=== PATIENT | male | born 1980 | race Caucasian/White ===

== ENCOUNTER 2019-03-04 12:43 | Observation (INO) ==
[2019-03-04] MEDS ORDERED: Isovue-370 500 ML BOTTLE IVP ONE ×2 (12:56→12:57)
[2019-03-04 13:09] LABS: Hematocrit 49.8 % (37.5-50.1); Mean Corpuscular HGB Conc 33.5 g/dL (31.6-35.5); Mean Corpuscular Hemoglobin 29.7 pg (28.0-33.3); Mean Corpuscular Volume 88.5 fL (83.0-100.0); Mean Platelet Volume 9.3 fL (9.4-12.4); Platelet Count 319 K/mcL (140-400); Red Blood Count 5.63 M/mcL (4.19-5.50); Red Cell Distribution Width 14.2 % (11.5-14.5); White Blood Count 8.6 K/mcL (4.3-11.1)
[2019-03-04 13:13] LABS: Hemoglobin 16.7 g/dL (12.9-16.9)
--- NOTE | 2019-03-04 13:20 | Emergency Department Note ---
Disposition Clinical Impression: Left-sided weakness Altered mental state Qualifiers: Altered mental status type: delirium Qualified Code(s): R41.0 - Disorientation, unspecified Fever Qualifiers: Fever type: unspecified Qualified Code(s): R50.9 - Fever, unspecified Disposition: Admitted As Inpatient Condition: Undetermined Referrals: NONE,PCP [Primary Care Provider] - Forms: ED Satisfaction Letter Time of Disposition: 15:51 Neuro HPI - General Chief Complaint: ED Neuro Symptoms/Deficit Stated Complaint: stroke alert Time Seen by Provider: 03/04/19 12:46 Source: patient, EMS Mode of arrival: EMS Limitations: altered mental status Nursing Notes Reviewed: Yes Vital Signs Reviewed: Yes - History of Present Illness HPI Narrative: 38-year-old male from retirement arrives to the emergency department last known well at 6 AM with concern for left-sided weakness, paresthesias and alteration in mentation. Patient arrived in the emergency department had a stroke alert immediately called. No previous history. History has drug abuse. Patient is unable to communicate properly. Head CT demonstrates no acute findings. - Related Data Home Medications: Home Medications Medication Instructions Recorded Confirmed Omeprazole [PriLOSEC] 40 mg PO BID 02/25/19 02/27/19 Venlafaxine HCl [Venlafaxine HCl 75 mg PO DAILY 02/25/19 02/27/19 ER] Gabapentin [Neurontin] 600 mg PO TID 03/04/19 03/04/19 Previous Rx's Medication Instructions Recorded Doxycycline Hyclate 100 mg PO BID #20 tablet 02/27/19 Ibuprofen 800 mg PO TID PRN #15 tablet 02/27/19 Lactobacillus Acidophilus 1 each PO BID #30 capsule 02/27/19 [Acidophilus] Sulfamethoxazole/Trimeth DS 1 each PO BID #20 tablet 02/27/19 [Bactrim Ds] Allergies/Adverse Reactions: Allergies Allergy/AdvReac Type Severity Reaction Status Date / Time Penicillins Allergy Swelling Verified 02/25/19 00:06 of Lip/Tongue/Throat Limitations: ROS unobtainable due to patients medical condition Past Medical History - Past Medical History Source: old records reviewed Medical history: Reports: CVA, hypertension, seizures Surgical history: Reports: non-contributory Psychiatric history: Reports: no psych history - Social History Smoking Status: Current every day smoker Smokeless Tobacco Status: No Alcohol use: Reports: none Drug use: Reports: none Physical Exam - General Limitations: other (inability converse) General appearance: alert, in no apparent distress - Head Head exam: atraumatic, normocephalic, normal inspection - Eye Eye exam: Present: normal appearance, PERRL, EOMI - ENT ENT exam: normal exam, normal oropharynx, mucous membranes moist - Neck Neck exam: Present: normal inspection, full ROM, trachea midline - Chest Chest inspection: Present: normal inspection - Respiratory Respiratory exam: Present: normal lung sounds bilaterally - Cardiovascular Cardiovascular exam: Present: normal rhythm, tachycardia - Abdominal Exam Abdominal exam: Present: soft, Non-Tender. Absent: tenderness, distention, guarding, rebound, rigidity - Extremities Exam Extremities exam: Present: normal inspection, normal capillary refill. Absent: tenderness, pedal edema - Expanded Neurological Exam Sensory exam upper extremity: light touch: Abnormal Left Sensory exam lower extremity: light touch: Abnormal Left Coma Scale Eye Opening: Spontaneous Coma Scale Motor Response: Obeys Commands Coma Scale Verbal Response: None Coma Scale Total: 11 - Skin Skin exam: Present: warm, dry, intact, normal color Course - Reevaluation(s) Reevaluation #1: Patient's stroke workup here in the ED demonstrates no acute findings and no signs of 4 vessel occlusion. The patient is febrile so we are concerned about meningitis at this time given his symptoms. We will perform a lumbar puncture. No further questions or concerns noted. Time: 14:12 - Consultations Consultation #1: I spoke with at [facility] neurology stroke team. He agreed that the patient is out of the TPA window secondary to being roughly 6 hours of last known well. He recommended CTA of the head and neck with concern for LVO. He stated that if the patient has a LVO that they would call him back. Otherwise they can perform routine follow-up here at [facility]. Time: 15:34 Consultation #2: Patient's head CT demonstrates no signs of large vessel occlusion. Patient was tachycardic and febrile. I am concerned about infectious etiology given his alteration in mentation and symptoms. In addition toxidrome may not be discounted. I spoke with Dr. Garner in neurology who will see the patient in consultation. No further recommendations noted at this time. Vital Signs Pulse Rate 123 03/04/19 12:45 Respiratory Rate 18 06/09/19 12:45 Blood Pressure 133/104 06/09/19 12:45 Temperature 100.6 F H 03/04/19 14:14 Pulse Rate 137 03/04/19 12:53 Respiratory Rate 18 03/04/19 12:53 Blood Pressure 124/104 03/04/19 12:53 O2 Sat by Pulse Oximetry 97 03/04/19 12:53 Oxygen Delivery Oxygen Delivery Room Air Neuro Symptoms/Deficit - MDM Narrative Medical decision making narrative: The patient's workup here in the emergency department demonstrates no acute process to account for the patient's symptoms at this time. The patient was febrile and was altered combined with his neurologic deficits a lumbar puncture was performed. The CSF was clear at bedside. We went ahead and treated the patient prophylactically with antibiotics given the patient's tachycardia and fever. The patient will be admitted to the hospital at this time. Neurology has been consulted. In addition the patient will likely need an MRI. No further questions or concerns noted. Accepted by Dr. Angeles. - Lab Data Lab results reviewed: Yes I reviewed the patient's lab results. Result diagrams: 03/04/19 12:59 03/04/19 12:59 Lab Results 03/04/19 03/04/19 03/04/19 Range/Units 12:54 12:59 12:59 WBC 8.6 (4.3-11.1) K/mcL RBC 5.63 H (4.19-5.50) M/mcL Hgb 16.7 D (12.9-16.9) g/dL Hct 49.8 (37.5-50.1) % MCV 88.5 (83.0-100.0) fL MCH 29.7 (28.0-33.3) pg MCHC 33.5 (31.6-35.5) g/dL RDW 14.2 (11.5-14.5) % Plt Count 319 (140-400) K/mcL MPV 9.3 L (9.4-12.4) fL PT 12.1 (9.4-12.1) Seconds INR 1.1 APTT 32.6 (26.0-36.0) Seconds Sodium (136-145) mEq/L Potassium (3.5-5.1) mEq/L Chloride (98-107) mEq/L Carbon Dioxide (23-29) mEq/L BUN (6-20) mg/dL Creatinine (0.70-1.30) mg/dL Est GFR ( Amer) (> 60) Est GFR (Non-Af Amer) (> 60) BUN/Creatinine Ratio (6-26) Glucose (70-105) mg/dL POC Glucose 137 H (70-99) mg/dL Calculated Osmolality (280-300) Calcium (8.6-10.3) mg/dL Troponin I (< 0.04) ng/mL CSF Volume mL CSF Appearance (Clear) CSF Color (Colorless) CSF RBC (0.000 - 0.002) M/mcL CSF Tot Nucleated Cells (0-5) TNC/mcL 03/04/19 03/04/19 Range/Units 12:59 15:09 WBC (4.3-11.1) K/mcL RBC (4.19-5.50) M/mcL Hgb (12.9-16.9) g/dL Hct (37.5-50.1) % MCV (83.0-100.0) fL MCH (28.0-33.3) pg MCHC (31.6-35.5) g/dL RDW (11.5-14.5) % Plt Count (140-400) K/mcL MPV (9.4-12.4) fL PT (9.4-12.1) Seconds INR APTT (26.0-36.0) Seconds Sodium 135 L (136-145) mEq/L Potassium 4.1 (3.5-5.1) mEq/L Chloride 104 (98-107) mEq/L Carbon Dioxide 26 (23-29) mEq/L BUN 14 (6-20) mg/dL Creatinine 1.05 (0.70-1.30) mg/dL Est GFR ( Amer) > 60 (> 60) Est GFR (Non-Af Amer) > 60 (> 60) BUN/Creatinine Ratio 13 (6-26) Glucose 153 H (70-105) mg/dL POC Glucose (70-99) mg/dL Calculated Osmolality 284 (280-300) Calcium 9.5 (8.6-10.3) mg/dL Troponin I < 0.03 (< 0.04) ng/mL CSF Volume 4.0 mL CSF Appearance Clear (Clear) CSF Color Colorless (Colorless) CSF RBC < 0.002 (0.000 - 0.002) M/mcL CSF Tot Nucleated Cells < 3 (0-5) TNC/mcL - Radiology Data Radiology results reviewed: Yes I reviewed the patient's radiology results. Head CT 03/04/19 12:47 IMPRESSION: 1. No acute intracranial abnormality. 2. The results were discussed with Dr. Ley at 1304 hours on 03/04/2019. D/ / 03/04/2019 13:06:24 Sawyer Anaya MD / Sherly Gillespie Interpreting Provider: Sawyer Anaya MD Head CTA 03/04/19 12:57 IMPRESSION: Unremarkable CTA of the head and neck. D/ / Tor Laboy MD / Tor Laboy MD Interpreting Provider: Tor Laboy MD Neck CTA 03/04/19 12:57 IMPRESSION: Unremarkable CTA of the head and neck. D/ / Tor Laboy MD / Tor Laboy MD Interpreting Provider: Tor Laboy MD - EKG Data EKG attestation: Yes I reviewed and interpreted this EKG. EKG results narrative: Heart rate 120 beats for minute. Sinus tachycardia. No ST elevation or ST depression noted. No prolongation of QRS. No other acute changes noted. TPA Checklist - LKW: 3-4.5 hrs Add. Warnings/Precautions Patient/family understanding: The patient/family members have been counseled and understood the risk, benefit, and alternatives of treatment.
[2019-03-04 13:21] LABS: INR 1.1; Prothrombin Time 12.1 Seconds (9.4-12.1)
[2019-03-04 13:23] LABS: Activated Partial Thrombo Time 32.6 Seconds (26.0-36.0)
[2019-03-04 13:27] LABS: BUN/Creatinine Ratio 13 (6-26); Blood Urea Nitrogen 14 mg/dL (6-20); Calcium 9.5 mg/dL (8.6-10.3); Carbon Dioxide 26 mEq/L (23-29); Chloride 104 mEq/L (98-107); Glucose 153 mg/dL (70-105); Osmolality,Calculated 284 (280-300); Potassium 4.1 mEq/L (3.5-5.1); Sodium 135 mEq/L (136-145); eGFR For African Americans > 60 (> 60); eGFR For Non-African Americans > 60 (> 60)
[2019-03-04 13:28] LABS: Troponin I < 0.03 ng/mL (< 0.04)
[2019-03-04] MEDS ORDERED: 0.9 % Sodium Chloride 1,000 ML IVC ONE (14:17)
[2019-03-04] MEDS ORDERED: cefTRIAXone 2,000 MG in Water for inj. (sterile) 20 ML 20 ML IVP ONE (15:09)
[2019-03-04] MEDS ORDERED: Acetaminophen 650 MG RECTAL SUPP RC ONE (15:09)
[2019-03-04] MEDS ORDERED: Acyclovir 800 MG in D5% in Water 250 ML IVPB ONE (15:09)
[2019-03-04 15:35] LABS: Red Blood Cell,CSF < 0.002 M/mcL
[2019-03-04 15:36] LABS: Appearance,CSF Clear (Clear)
[2019-03-04 15:53] LABS: Glucose,CSF 70 mg/dL (40-70); Total Protein,CSF 52 mg/dL (15-45)
[2019-03-04] MEDS ORDERED: Naloxone 0.4 MG/ML INJ IVP PRN (15:58)
[2019-03-04] MEDS ORDERED: Dexamethasone 10 MG/ML VIAL IVP SCH (16:00)
[2019-03-04] MEDS ORDERED: Vancomycin (wt based) 1,000 MG VIAL IVPB SCH (16:00)
--- NOTE | 2019-03-04 16:15 | Emergency Department Note ---
Disposition Clinical Impression: Left-sided weakness Altered mental state Qualifiers: Altered mental status type: delirium Qualified Code(s): R41.0 - Disorientation, unspecified Fever Qualifiers: Fever type: unspecified Qualified Code(s): R50.9 - Fever, unspecified Disposition: Admitted As Inpatient Condition: Undetermined Referrals: NONE,PCP [Primary Care Provider] - Forms: ED Satisfaction Letter Time of Disposition: 15:51 General Adult HPI - General Chief complaint: ED Neuro Symptoms/Deficit Stated complaint: stroke alert Time Seen by Provider: 03/04/19 12:46 Source: patient, EMS Mode of arrival: EMS Limitations: other (inability converse) - History of Present Illness Pain Scale: 0 - Related Data Home Medications Medication Instructions Recorded Confirmed Omeprazole [PriLOSEC] 40 mg PO DAILY 02/25/19 03/04/19 Venlafaxine HCl [Venlafaxine HCl 75 mg PO DAILY 02/25/19 03/04/19 ER] Gabapentin [Neurontin] 600 mg PO TID 03/04/19 03/04/19 Previous Rx's Medication Instructions Recorded Doxycycline Hyclate 100 mg PO BID #20 tablet 02/27/19 Ibuprofen 800 mg PO TID PRN #15 tablet 02/27/19 Lactobacillus Acidophilus 1 each PO BID #30 capsule 02/27/19 [Acidophilus] Sulfamethoxazole/Trimeth DS 1 each PO BID #20 tablet 02/27/19 [Bactrim Ds] Allergies Allergy/AdvReac Type Severity Reaction Status Date / Time Penicillins Allergy Swelling Verified 02/25/19 00:06 of Lip/Tongue/Throat Past Medical History - Past Medical History Medical history: Reports: CVA, hypertension, seizures Surgical history: Reports: non-contributory Psychiatric history: Reports: no psych history - Social History Smoking Status: Current every day smoker Smokeless Tobacco Status: No Alcohol use: Reports: none Drug use: Reports: none Physical Exam - General Limitations: other (inability converse) General appearance: alert, in no apparent distress Course Vital Signs Pulse Rate 123 03/04/19 12:45 Respiratory Rate 03/04/19 12:45 Blood Pressure 133/104 03/04/19 12:45 Temperature 100.6 F H 03/04/19 14:14 Pulse Rate 114 03/04/19 15:59 Respiratory Rate 18 03/04/19 15:59 Blood Pressure 105/75 03/04/19 15:59 O2 Sat by Pulse Oximetry 94 03/04/19 15:59 Oxygen Delivery Oxygen Delivery Room Air Medical Decision Making - Lab Data Result diagrams: 03/04/19 12:59 03/04/19 12:59 Lab Results 03/04/19 03/04/19 03/04/19 Range/Units 12:54 12:59 12:59 WBC 8.6 (4.3-11.1) K/mcL RBC 5.63 H (4.19-5.50) M/mcL Hgb 16.7 D (12.9-16.9) g/dL Hct 49.8 (37.5-50.1) % MCV 88.5 (83.0-100.0) fL MCH 29.7 (28.0-33.3) pg MCHC 33.5 (31.6-35.5) g/dL RDW 14.2 (11.5-14.5) % Plt Count 319 (140-400) K/mcL MPV 9.3 L (9.4-12.4) fL PT 12.1 (9.4-12.1) Seconds INR 1.1 APTT 32.6 (26.0-36.0) Seconds Sodium (136-145) mEq/L Potassium (3.5-5.1) mEq/L Chloride (98-107) mEq/L Carbon Dioxide (23-29) mEq/L BUN (6-20) mg/dL Creatinine (0.70-1.30) mg/dL Est GFR ( Amer) (> 60) Est GFR (Non-Af Amer) (> 60) BUN/Creatinine Ratio (6-26) Glucose (70-105) mg/dL POC Glucose 137 H (70-99) mg/dL Calculated Osmolality (280-300) Lactic Acid (0.5-2.2) mmol/L Calcium (8.6-10.3) mg/dL Troponin I (< 0.04) ng/mL CSF Volume mL CSF Appearance (Clear) CSF Color (Colorless) CSF RBC (0.000 - 0.002) M/mcL CSF Tot Nucleated Cells (0-5) TNC/mcL CSF Glucose (40-70) mg/dL CSF Xanth Comm (Not Observe) CSF Total Protein (15-45) mg/dL 03/04/19 03/04/19 03/04/19 Range/Units 12:59 15:09 15:41 WBC (4.3-11.1) K/mcL RBC (4.19-5.50) M/mcL Hgb (12.9-16.9) g/dL Hct (37.5-50.1) % MCV (83.0-100.0) fL MCH (28.0-33.3) pg MCHC (31.6-35.5) g/dL RDW (11.5-14.5) % Plt Count (140-400) K/mcL MPV (9.4-12.4) fL PT (9.4-12.1) Seconds INR APTT (26.0-36.0) Seconds Sodium 135 L (136-145) mEq/L Potassium 4.1 (3.5-5.1) mEq/L Chloride 104 (98-107) mEq/L Carbon Dioxide 26 (23-29) mEq/L BUN 14 (6-20) mg/dL Creatinine 1.05 (0.70-1.30) mg/dL Est GFR ( Amer) > 60 (> 60) Est GFR (Non-Af Amer) > 60 (> 60) BUN/Creatinine Ratio 13 (6-26) Glucose 153 H (70-105) mg/dL POC Glucose (70-99) mg/dL Calculated Osmolality 284 (280-300) Lactic Acid 1.0 (0.5-2.2) mmol/L Calcium 9.5 (8.6-10.3) mg/dL Troponin I < 0.03 (< 0.04) ng/mL CSF Volume 4.0 mL CSF Appearance Clear (Clear) CSF Color Colorless (Colorless) CSF RBC < 0.002 (0.000 - 0.002) M/mcL CSF Tot Nucleated Cells < 3 (0-5) TNC/mcL CSF Glucose 70 (40-70) mg/dL CSF Xanth Comm Corrected Result (Not Observe) CSF Total Protein 52 H (15-45) mg/dL Attestation Statement - Attestation Attestation: I examined this patient and my medical decision-making was reviewed with the Resident Physician. I agree with the documented findings, disposition and treatment plan as described except to the extent set forth below. Patient sent from the [facility] drill, stroke alert called in by EMS. Last seen normal at 6:00 this morning by the guard was present and confirms he was normal at that time. I evaluated the patient at the EMS bay to determine if he was stable to go directly to CT scan and determine that he was protecting his airway, awake, and he will go to CT scan. On return back for CT, which is negative, Dr. Ley found it very difficult to calculate an accurate NIH score to do the lack of patient this patient with the exam. This was consistent with my exam as well. He was more than 6 hours past his last known well. If he were to have a large vessel occlusion, he would potentially be a candidate for thrombectomy. CTA was subsequently ordered and was negative. Rectal te mperature was noted to be 100.6 degrees Fahrenheit. At this point, given his neurologic deficits, mental status changes and fever, and inability to provide a very good history, the decision was made to proceed with lumbar puncture to rule out meningitis and/or encephalitis. Dr. Ley perform this procedure along with Dr. Leija. I was present for the mcrae portions of the procedure. CSF studies that have come back to this point do not suggest an infectious process. Patient was accepted by the hospitalist for admission. Critical care time: I was directly and primarily involved in the care of this patient for 35 minutes excluding procedures.
[2019-03-04 16:49] LABS: Acetaminophen < 10 mcg/mL (10-20); C-Reactive Protein < 5 mg/L (Less than 10); Salicylate < 2.5 mg/dL (15.0-30.0)
--- NOTE | 2019-03-04 17:09 | Internal Med History&Physical ---
Date of Encounter: 03/04/19 Time of Encounter: 15:30 Internal Medicine - H&P: HPI Chief complaint: AMS Plans for Post Hospital Care: Transfer Other (retirement) History of present illness: Mr. Gregory is a 38 year old male with history of KEELEY, recent cellulitis of the right arm presented to the ED from retirement with difficulty speaking and left sided weakness. patient is unable to speak ( cannot open mouth) so most of the information was provided by officer at bedside and the ED physician and nurse. as per officer at bedside about 8 PM last night he had abnormal movement of his extremities and it was thought that he was having a seizure however when evaluated by the officers at the retirement he was alert and oriented and there was no signs of seizure-like activity. Last well-known was at 6 AM when he spoke to an officer at the retirement however afterwards he developed left-sided weakness along with difficulty speaking. He is right-hand dominant and he was able to write down answers to questions without any difficulty. when asked if he has any pain he point to his head, denies vision changes, neck stiffness, N/v/D, shakes head no to difficulty urinating, pain on urinating, cough, chills or fever. as per office he is not on seiure medications at the retirement. in the ED stroke alert was called No TPA given after [facility] was contacted " at [facility] neurology stroke team. He agreed that the patient is out of the TPA window secondary to being roughly 6 hours of last known well. " . last well known was at 6 AM on the day of admission. he was endorsed for admission for further evaluation of his weakness. Past Med Surg Social Fam HX - Past Medical History Medical history: CVA, hypertension, seizures Psychiatric history: no psych history - Past Surgical History Surgical History: non-contributory Additional surgical history: right knee replacement - Social History Smoking Status: Current every day smoker Smokeless Tobacco Status: No Alcohol use: none Drug use: none Internal Medicine - H&P: Meds Omeprazole [PriLOSEC] 40 mg PO DAILY 02/25/19 [History] Venlafaxine HCl [Venlafaxine HCl ER] 75 mg PO DAILY 02/25/19 [History] Doxycycline Hyclate 100 mg PO BID #20 tablet 02/27/19 [Rx] Ibuprofen 800 mg PO TID PRN #15 tablet 02/27/19 [Rx] Lactobacillus Acidophilus [Acidophilus] 1 each PO BID #30 capsule 02/27/19 [Rx] Sulfamethoxazole/Trimeth DS [Bactrim Ds] 1 each PO BID #20 tablet 02/27/19 [Rx] Gabapentin [Neurontin] 600 mg PO TID 03/04/19 [History] Allergy/AdvReac Type Severity Reaction Status Date / Time Penicillins Allergy Swelling Verified 02/25/19 00:06 of Lip/Tongue/Throat All Systems PM: A 10-system review of systems was performed and is negative for pertinent findings except as documented above in the HPI. - Constitutional Vitals: Temp Pulse Resp BP Pulse Ox 100.6 F H 112 18 107/81 95 03/04/19 14:14 03/04/19 16:14 03/04/19 16:14 03/04/19 16:14 03/04/19 16:14 Exam: General: Patient is alert, oriented (year, [facility]) Head: atraumatic, normocephalic, Eye: normal appearance, PERRL, no scleral icterus, no conjunctival injection ENT: wont open mouth Neck: normal inspection, trachea midline, full ROM, no carotid bruits Chest: normal inspection, symmetric chest rise Respiratory: Good respiratory effort. Bilateral breath sounds are clear without wheezing, crackles, or rhonchi. Cardiovascular:tahcycardic, s1 and s2 No clicks, rubs, gallops, or murmors. Abdomen: Bowel sounds present normoactive x-4 quadrants. Abdomen is soft, nondistended. no Epigastric tenderness. No guarding or rebound. No organomegaly noted musculoskeletal: moves right extremities, is not moving the eft extremities however when i picked up his left arm he held it in the Air. Skin: warm, dry, intact. Neuro: Alert and oriented x year, [facility], right hand dominant, wrote down answers to the questions without difficulty. EOMI intact, Perrla, wont open mouth howvever face is symmetric, finger to nose on last right side is intact, strength is 5/5 in right extremities, strength is 0/5 in left lower extremity and 0/5 in left upper extremity however he was able to hold his left arm up after i tried to hold it up in the air the second time. reports that he has no sensation in the right lower extremities when comapred to the LLE Psych: Patient's affect is normal Internal Med - H&P Results - Labs CBC & Chem 7: 03/04/19 12:59 03/04/19 12:59 Labs: Short CBC 03/04/19 Range/Units 12:59 WBC 8.6 (4.3-11.1) K/mcL Hgb 16.7 D (12.9-16.9) g/dL Hct 49.8 (37.5-50.1) % Plt Count 319 (140-400) K/mcL BMP 03/04/19 12:59 Sodium 135 L Potassium 4.1 Chloride 104 Carbon Dioxide 26 BUN 14 Creatinine 1.05 Glucose 153 H Calcium 9.5 Cardiac Enzymes 03/04/19 Range/Units 12:59 Troponin I < 0.03 (< 0.04) ng/mL - EKG Data -: EKG Interpreted by Myself EKG shows normal: sinus rhythm Rate: tachycardia (borderline repolirization abnormalities ) - EKG Data Prior EKG available for review: yes When compared to previous EKG: there is no significant change - Impressions ITS Impressions Head CT 03/04/19 12:47 IMPRESSION: 1. No acute intracranial abnormality. 2. The results were discussed with Dr. Ley at 1304 hours on 03/04/2019. D/ / 03/04/2019 13:06:24 Sawyer Anaya MD / Sherly Gillespie Interpreting Provider: Sawyer Anaya MD Head CTA 03/04/19 12:57 IMPRESSION: Unremarkable CTA of the head and neck. D/ / Tor Laboy MD / Tor Laboy MD Interpreting Provider: Tor Laboy MD Neck CTA 03/04/19 12:57 IMPRESSION: Unremarkable CTA of the head and neck. D/ / Tor Laboy MD / Tor Laboy MD Interpreting Provider: Tor Laboy MD - Assessment and Plan (1) Left-sided weakness Current Visit: Yes Status: Acute Assessment and plan: left sided weakness rule out stroke vs postictal from seizure reports history of seizures but cannot elaborate further and is not on seizure medications currently will load him with keppra and continue 500 mg BID [facility] called - did not recommend TPA ( out of the window) CTA head and neck without acute abnormalities MRI head pending TTE with bubble study ASA 300 mg once RC given in the ED keep NPO IV hydration will send prolactin and CPK tylenol for headache continue with NIH aspiration, seizure, fall precautions lipid panel, A1c, TSH with AM labs prolactin, ESR, CRP pt/ot neurology consulted in the Ed will follow recs (2) SIRS (systemic inflammatory response syndrome) Current Visit: Yes Status: Acute Assessment and plan: fever and tachycardia secondary source unknown sepsis protocol activated lactic acid WNL gonzalez cx ordered UA pending recently was treated with right hand cellulitis - almost healed without signs of infection being treated for possible mennigitis with ceftriaxone, vancomycin, acyclovir, dexamethasone - no need for ampicillin as he is not >50 years old nor is he immunocompromised. LP performed in the ED -will follow studies neurochecks and precautions as above procalcitonin ordered (3) IV drug abuse Current Visit: No Status: Acute Assessment and plan: utox pending (4) DVT prophylaxis Current Visit: No Status: Acute Assessment and plan: scds for now as he just had LP - Time Spent With Patient Total time spent is greater than 50% in coordination of care (as documented) at patient's floor/unit and/or counseling patient:
[2019-03-04] MEDS ORDERED: levETIRAcetam 1,000 MG in 0.9 % Sodium Chloride 100 ML IVPB ONE (17:28)
[2019-03-04 17:39] LABS: Creatine Kinase 31 Units/L (30-223)
[2019-03-04 18:03] LABS: Prolactin 14.51 ng/mL (3.00-14.70)
[2019-03-04 18:12] LABS: Bilirubin,Urine Negative (Negative); Blood,Urine Negative (Negative); Clarity,Urine Clear (Clear); Color,Urine Yellow (Yellow); Glucose,Urine (UA) Normal (Normal); Ketones,Urine Negative (Negative); Leukocyte Esterase,Urine Negative (Negative); Nitrite,Urine Negative (Negative); PH,Urine 6.5 pH Units (5.0-8.0); Protein,Urine Negative (Neg-Trace); Specific Gravity,Urine 1.027 (1.010-1.025); Urobilinogen,Urine Normal (Normal)
[2019-03-04 18:19] LABS: Amphetamine Screen,Urine Negative ng/mL (Cutoff=1000); Barbiturate Screen,Urine Negative ng/mL (Cutoff=200); Benzodiazepines Screen,Urine Negative ng/mL (Cutoff=200); Cannabinoid Screen,Urine Negative ng/mL (Cutoff = 50); Cocaine Screen,Urine Negative ng/mL (Cutoff= 300); Opiate Screen,Urine Negative ng/mL (Cutoff=300); Phencyclidine Screen,Urine Negative ng/mL (Cutoff=25)
[2019-03-04] MEDS ORDERED: D5% in Water 1,000 ML IVC PRN (18:21)
[2019-03-04] MEDS ORDERED: *HR* Dextrose 50 % in Water (Syg) 50 ML SYRINGE IVP PRN (18:21)
[2019-03-04] MEDS ORDERED: Dextrose Gel 15 GM/37.5 ML TUBE PO PRN ×2 (18:21)
[2019-03-04] MEDS ORDERED: Acetaminophen 325 MG RECTAL SUPP RC PRN (18:21)
[2019-03-04] MEDS: 0.9 % Sodium Chloride 1,000 ML IVC SCH (18:50)
[2019-03-04] MEDS ORDERED: Acetaminophen IV 500 MG/50 ML INFUS..BTL IVPB ONE (20:54)
[2019-03-04] MEDS ORDERED: Gabapentin 300 MG CAPSULE PO SCH (21:00)
[2019-03-04] MEDS: Lactobacillus 1 EACH CAP.SPRINK PO SCH (21:47)
[2019-03-05] MEDS: Dexamethasone 10 MG/ML VIAL IVP SCH ×2 (00:36→05:54)
[2019-03-05] MEDS ORDERED: traMADol 50 MG TABLET PO ONE (01:12)
[2019-03-05] MEDS ORDERED: *HR* Metoprolol 5 MG/5 ML VIAL IVP ONE (04:11)
[2019-03-05] MEDS: cefTRIAXone 2,000 MG in Water for inj. (sterile) 20 ML 20 ML IVP SCH ×2 (04:26→05:15)
[2019-03-05] MEDS ORDERED: *HR* Promethazine 25 MG/ML VIAL IVP PRN (05:01)
[2019-03-05 05:12] LABS: Basophils % 0.1 %; Hematocrit 45.5 % (37.5-50.1); Immature Granulocytes % 0.3 % (0-4); Lymphocytes # 1.3 K/mcL (0.6-4.6); Lymphocytes % 13.9 %; Mean Corpuscular HGB Conc 33.2 g/dL (31.6-35.5); Mean Corpuscular Hemoglobin 29.2 pg (28.0-33.3); Monocytes # 0.1 K/mcL (0.0-1.3); Monocytes % 0.5 %; Neutrophils # 7.9 K/mcL (1.6-8.9); Platelet Count 338 K/mcL (140-400); Red Blood Count 5.17 M/mcL (4.19-5.50); Red Cell Distribution Width 14.2 % (11.5-14.5); Segmented Neutrophils % 85.2 %; White Blood Count 9.3 K/mcL (4.3-11.1)
[2019-03-05 05:14] LABS: Hemoglobin 15.1 g/dL (12.9-16.9)
[2019-03-05 05:30] LABS: Chol/HDL Ratio 3.6 (0-4.9)
[2019-03-05 05:31] LABS: Albumin 4.2 g/dL (3.5-5.7); Albumin/Globulin Ratio 1.3 (1.1-2.2); Bilirubin,Direct 0.2 mg/dL (0.0-0.2); Bilirubin,Indirect 0.8 mg/dL (0.0-1.2); Globulin 3.3 g/dL (2.4-3.5); Total Protein 7.5 g/dL (6.4-8.9)
[2019-03-05 05:33] LABS: BUN/Creatinine Ratio 17 (6-26); Blood Urea Nitrogen 17 mg/dL (6-20); Calcium 9.3 mg/dL (8.6-10.3); Carbon Dioxide 20 mEq/L (23-29); Chloride 104 mEq/L (98-107); Glucose 184 mg/dL (70-105); Osmolality,Calculated 286 (280-300); Sodium 135 mEq/L (136-145); eGFR For African Americans > 60 (> 60); eGFR For Non-African Americans > 60 (> 60)
[2019-03-05 05:46] LABS: Thyroid Stimulating Hormone 1.007 mcIU/mL (0.340-5.600)
[2019-03-05] MEDS: 0.9 % Sodium Chloride 1,000 ML IVC SCH (05:53)
[2019-03-05 06:43] LABS: Estimated Average Glucose 120 mg/dl; Hemoglobin A1C 5.8 %
[2019-03-05] MEDS ORDERED: Insulin LISPRO 300 UNITS/3 ML VIAL SQ SCH (07:30)
[2019-03-05 07:44] VITALS: BP 121/73
[2019-03-05] MEDS ORDERED: Acyclovir 800 MG in D5% in Water 250 ML IVPB SCH (08:00)
[2019-03-05] MEDS ORDERED: Acetaminophen/Aspirin/Caffeine TABLET PO PRN (08:52)
[2019-03-05] MEDS ORDERED: Venlafaxine XR (24 HR) 75 MG CAP.ER.24H PO SCH (09:00)
[2019-03-05] MEDS: Lactobacillus 1 EACH CAP.SPRINK PO SCH (10:17)
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
--- NOTE | 2019-03-05 15:17 | Discharge Summary ---
Orders not resulted at time of discharge: Pending orders 03/04/19 15:09 CSF Echovirus Antibodies Stat Culture,CSF [RM] Stat HSV 1 Glycoprotein G IgG CSF Stat HSV 2 Glycoprotein G IgG CSF Stat 03/04/19 15:59 MRSA Surveillance Screen [MOLMIC] Stat 03/04/19 16:25 Culture,Blood [BC] Stat 03/04/19 17:58 Culture,Urine [] Stat Legionella Antigen [RM] Stat Streptococcal pneumoniae urin antigen [S. Pneumoniae Antigen] [RM] Stat Date of Encounter: 03/05/19 Time of Encounter: 11:00 - Discharge Diagnosis (1) Left-sided weakness Priority: Primary Status: Acute (2) SIRS (systemic inflammatory response syndrome) Priority: Secondary Status: Acute (3) IV drug abuse Priority: Secondary Status: Acute (4) DVT prophylaxis Priority: Secondary Status: Acute Hospital course: " Mr. Gregory is a 38 year old male with history of KEELEY, recent cellulitis of the right arm presented to the ED [facility] with difficulty speaking and left sided weakness. patient is unable to speak ( cannot open mouth) so most of the information was provided by officer at bedside and the ED physician and nurse. as per officer at bedside about 8 PM last night he had abnormal movement of his extremities and it was thought that he was having a seizure however when evaluated by the officers at the snf he was alert and oriented and there was no signs of seizure-like activity. Last well-known was at 6 AM when he spoke to an officer at the snf however afterwards he developed left-sided weakness along with difficulty speaking. He is right-hand dominant and he was able to write down answers to questions without any difficulty. when asked if he has any pain he point to his head, denies vision changes, neck stiffness, N/v/D, shakes head no to difficulty urinating, pain on urinating, cough, chills or fever. as per office he is not on seiure medications at the snf. in the ED stroke alert was called No TPA given after [facility] was contacted " at [facility] neurology stroke team. He agreed that the patient is out of the TPA window secondary to being roughly 6 hours of last known well. " . last well known was at 6 AM on the day of admission. he was endorsed for admission for further evaluation of his weakness. " patient resented with above presentation and was admitted to rule out CVA and menningitis. he had fever and was tachycardic on admission. LP performed and negative except for elevated protein of 54. he was started on emperic Antibiotics and antivrals for menningitis and was loaded with keppra for possible symptoms being related to seizures. all imaging of the head was negativ e including MRI. CSF cultures NGTD, bcx NGTD. procalcitonin and lactic acid negative, TSH wnl, prolactin WNL, A1c 5.8. HIV negative. herpes serology in process. neurology was consulted and recommended to discontinue IV adn IV steroids for menningitis. his left sided weakness improved and speech was clear and was now able to open mouth. it was recommended that EEG be performed to rule out seizures and he was started on keppra on admission. nurse called me to see the patient at bedside as he would like to go AMA. risks and benefits of signing out AMA discussed with patient including cardiac a rrest, sepsis, seizures, status epileptics, , respiratory arrest and possibly harming/killing civilians/himself or passengers if he develops seizures while driving was discussed with patient he understands however he wishes to sign out AMA to go be with his mother who is ill. he reported that he will not be driving and has a ride that will pick him up. AMA formed signed by patient, he is Axox3. witnessed by nurse. IMPRESSION: Unremarkable CTA of the head and neck. MRi head: IMPRESSION: No acute infarct. TTE:Impressions: LVEF 65%. Normal LV chamber size, wall thickness and function. Normal right ventricular structure and function. No evidence of a PFO with agitated saline contrast. No evidence of pulmonary hypertension. No significant valvular dysfunction. Discharge discussed with: patient, nurse - Time Spent with Patient Total time spent providing and/or coordinating discharge services: Time spent: Less than 30 minutes, Greater than 30 minutes - Discharge Medications Prescriptions: No Action Venlafaxine HCl [Venlafaxine HCl ER] 75 mg PO DAILY Omeprazole [PriLOSEC] 40 mg PO DAILY Doxycycline Hyclate 100 mg PO BID #20 tablet Sulfamethoxazole/Trimeth DS [Bactrim Ds] 1 each PO BID #20 tablet Ibuprofen 800 mg PO TID PRN #15 tablet PRN Reason: Pain Lactobacillus Acidophilus [Acidophilus] 1 each PO BID #30 capsule Gabapentin [Neurontin] 600 mg PO TID Home Medications: Omeprazole [PriLOSEC] 40 mg PO DAILY 02/25/19 [History] Venlafaxine HCl [Venlafaxine HCl ER] 75 mg PO DAILY 02/25/19 [History] Doxycycline Hyclate 100 mg PO BID #20 tablet 02/27/19 [Rx] Ibuprofen 800 mg PO TID PRN #15 tablet 02/27/19 [Rx] Lactobacillus Acidophilus [Acidophilus] 1 each PO BID #30 capsule 02/27/19 [Rx] Sulfamethoxazole/Trimeth DS [Bactrim Ds] 1 each PO BID #20 tablet 02/27/19 [Rx] Gabapentin [Neurontin] 600 mg PO TID 03/04/19 [History] Allergies/Adverse Reactions: Allergy/AdvReac Type Severity Reaction Status Date / Time Penicillins Allergy Swelling Verified 02/25/19 00:06 of Lip/Tongue/Throat Date of admission: 03/04/19 16:47 Primary care physician: PCP NONE Consults: 03/04/19 16:36 Consult to Neurology [CONS] Stat Consulting Provider: [facility] Reason for Consult: acute encephalopathy, ?menningitis - ED spoke to Dr. escobar Call Completed: Yes 03/04/19 17:33 Consult to Physical Therapy [CONS] Routine Comment: Evaluate, develop and implement POC Reason for Consult: dispostion Does patient have active BEDREST order?: No Is patient medically & hemodynamically stable?: Yes Patient assessed for mobility or mobilized this visit?: Yes Consult to Speech Therapy [CONS] Routine Comment: Evaluate, develop and implement POC Reason for Consult: dysphagia Call Completed: No OT [Consult to Occupational Therapy] [CONS] Routine Comment: Evaluate, develop and implement POC Reason for Consult: disposition Does patient have active BEDREST order?: No Is patient medically & hemodynamically stable?: Yes Patient assessed for mobility or mobilized this visit?: Yes - Constitutional Vitals: Temp Pulse Resp BP Pulse Ox 98.3 F 117 18 121/73 93 03/05/19 07:40 03/05/19 07:40 03/05/19 07:40 03/05/19 07:40 03/05/19 10:25 Exam: General: Patient is alert, oriented, NAD Head: atraumatic, normocephalic, Eye: normal appearance, PERRL, no scleral icterus, no conjunctival injection ENT: wont open mouth Neck: normal inspection, trachea midline, full ROM, no carotid bruits Chest: normal inspection, symmetric chest rise Respiratory: Good respiratory effort. Bilateral breath sounds are clear without wheezing, crackles, or rhonchi. Cardiovascular:tahcycardic, s1 and s2 No clicks, rubs, gallops, or murmors. Abdomen: Bowel sounds present normoactive x-4 quadrants. Abdomen is soft, nondistended. no Epigastric tenderness. No guarding or rebound. No organomegaly noted musculoskeletal: moves right extremities, is not moving the eft extremities however when i picked up his left arm he held it in the Air. Skin: warm, dry, intact. Neuro: Alert and oriented x 3, moving all 4 extremities now, speech is at baseline, no facial droop, CN2-12 intact full neurological assessment as per neurology" *ASSESSMENT OF MUSCLE STRENGTH IN THE UPPER AND LOWER EXTREMITIES right deltoid, bicep, tricep, special needs babysitter strength, hip flexors ,anterior tibialis, dorsoflexion of the foot 4/5. Left deltoid, bicep, tricep, special needs babysitter strength, hip flexors, anterior tibialis, dorsiflexion of the foot 4/5 also but strength is more diminished when compared to right *MUSCLE TONE IN THE UPPER AND LOWER EXTREMITIES normal. No abnormal movements, fasciculations or atrophy identified. Neurological: *ORIENTATION to person, situation, time and place *RECURRENT AND REMOTE MEMORY intact *ATTENTION AND CONCENTRATION are normal *LANGUAGE FUNCTION no significant aphasia or dysarthia was noted. *FUND OF KNOWLEDGE aware of current events, past history, vocabulary *MENTAL attention span and concentration normal. *CN II optic fundi were normal, no papilledema noted. *CN III,IV, PERRLA extraocular eye movements were full, no nystagmus and no ptosis noted. *CN V shows normal sensation and jaw opens symmetrically. *CN VII shows normal facial movement symmetrically, upper and lower bilaterally. *CN VIII shows no significant hearing loss on exam *CN IX,,X palate elevated symmetrically *CN XI normal strength in the sternocleidomastoid muscles, symmetrical shoulder shrugging. *CN XII tongue protruded in the midline, with normal strength and movement. *SENSORY EXAMINATION light touch intact *REFLEXES: deep tendon reflexes were normal and symmetrical , grade 2/4 diffusely, no pathological reflexes were noted. *CEREBELLAR TESTING normal finger to nose" Psych: Patient's affect is normal no SI or HI - Patient Status Disposition: Left Against Medical Advice Condition: Undetermined - Discharge Instructions Follow Up With: NONE,PCP [Primary Care Provider] - - VTE Documentation of Mechanical Device: Graduated compression elastic hosiery
--- NOTE | 2019-03-05 21:25 | Electrocardiograph Report ---
[place] [id number] Test Date: 2019-03-04 Pat Name: He Gregory Department: EXAM11 Room: 2NE20 Gender: M Employment Attorney: : 1980 Requested By: Virgil Ley Order Number: [id number] Reading MD: Erin Garcia Measurements Intervals [place] Rate: 120 P: 74 IN: 156 QRS: 78 QRSD: 87 T: -9 QT: 294 QTc: 416 Interpretive Statements Sinus tachycardia Nonspecific ST-T abnormalities Electronically Signed On 03-05-2019 21:24:03 EDT by Erin Garcia
--- NOTE | 2019-03-05 21:53 | Electrocardiograph Report ---
[address] [address] Test Date: 2019-03-05 Pat Name: He Gregory Department: 111 Room: 2NE20 Gender: M Staffing Clerk: : 1980 Requested By: Virgil Nunez Order Number: [id number] Reading MD: Erin Garcia Measurements Intervals [place] Rate: 123 P: 66 AK: 143 QRS: 51 QRSD: 90 T: 60 QT: 337 QTc: 410 Interpretive Statements SINUS TACHYCARDIA NONSPECIFIC ST & T-WAVE ABNORMALITY Electronically Signed On 03-05-2019 21:51:56 EDT by Erin Garcia
[2019-03-08 13:49] LABS: HSV 2 Glycoprotein G IgG CSF 0.15 IV (<=0.89)
[2019-03-10 10:00] LABS: HSV 1 Glycoprotein G IgG CSF 1.76 IV (<=0.89)
== END 2019-03-05 11:59 | disposition left against medical advice (07) ==
LOC: EMEROOARM 12:43 → 2NENU 12:43
PROVIDERS: ADMIT Internal Medicine Nephrology; ATTEND Internal Medicine Nephrology